=== PATIENT | male | born 1965 | race American Indian/Alaskan Native ===

== ENCOUNTER 2020-03-24 10:07 | Emergency (ER) | payer SELFPAY ==
--- NOTE | 2020-03-24 10:33 | Event Note ---
ED Screening Note Date of service: 03/24/20 Time: 10:33 ED Screening Note: 54-year-old -Serbian male presents to the emergency room complaining of intermittent chest pain to the left upper chest for a week. Patient denies any radiation to the jaw arm or back. Patient reports he had a physical couple months ago there is no concerns. Patient denies any shortness of breath or cough. Blood pressure was noted to be elevated in triage at 200/1 something. Repeated by this provider in triage and it was 177/98 with a pulse of 69. Patient denies any smoking of cigarettes or THC no alcohol use no illicit drug use. Currently takes no medications has no known drug allergies and no primary care provider at this time. This initial assessment/diagnostic orders/clinical plan/treatment(s) is/are subject to change based on patients health status, clinical progression and re-assessment by fellow clinical providers in the ED. Further treatment and workup at subsequent clinical providers discretion. Patient/guardian urged not to elope from the ED as their condition may be serious if not clinically assessed and managed. Initial orders include:
[2020-03-24 11:56] LABS: Basophils # (Auto) 0.1 K/mm3 (0.0-0.1); Basophils % (Auto) 0.9 % (0.0-1.8); Eosinophils # (Auto) 0.2 K/mm3 (0.0-0.4); Eosinophils % (Auto) 2.3 % (0.0-4.3); Hematocrit 42.1 % (35.5-45.6); Hemoglobin 14.2 gm/dl (11.8-15.2); Lymphocytes # (Auto) 2.5 K/mm3 (1.2-5.4); Mean Corpuscular HGB Conc 34 % (32-34); Mean Corpuscular Volume 81 fl (84-94); Monocytes # (Auto) 0.5 K/mm3 (0.0-0.8); Monocytes % (Auto) 7.6 % (0.0-7.3); Platelet Count 404 K/mm3 (140-440); Red Blood Count 5.23 M/mm3 (3.65-5.03); Red Cell Distribution Width 13.6 % (13.2-15.2)
[2020-03-24 12:19] LABS: Alanine Aminotransferase 33 units/L (7-56); Albumin 4.1 g/dL (3.9-5); BUN/Creatinine Ratio 15; Blood Urea Nitrogen 12 mg/dL (9-20); Calcium 9.2 mg/dL (8.4-10.2); Hemolysis Index 49
--- NOTE | 2020-03-24 12:26 | XRay Report ---
XR chest routine 2V INDICATION / CLINICAL INFORMATION: chest pain. COMPARISON: None available. FINDINGS: SUPPORT DEVICES: None. HEART /PULMONARY VASCULATURE: No significant abnormality. LUNGS / PLEURA: No significant pulmonary or pleural abnormality. No pneumothorax. ADDITIONAL FINDINGS: No significant additional findings. IMPRESSION: 1. No acute findings. Signer Name: Alex Doran MD Signed: 03/24/2020 12:22 PM Workstation Name: [id number]
--- NOTE | 2020-03-24 12:54 | Emergency Department Report ---
ED Chest Pain HPI - General Chief Complaint: Chest Pain Stated Complaint: CHEST PAIN Time Seen by Provider: 03/24/20 11:40 Source: patient Mode of arrival: Ambulatory Limitations: No Limitations - History of Present Illness Initial Comments: CC: chest pain HPI: This is a healthy 54-year-old male without significant past medical history who presents with chest pain. Patient has had 3 episodes of chest pain at night on the over the past week. Chest pain occurred at Friday and night. On Friday he remember 3 AM watching TV in bed. During that time he had a sharp chest pain which lasted about 2 minutes. He called EMS. Paramedics stated that he did not have a heart attack. He has been under a lot of stress. Several months ago he had a full physical. He was not told that he had high blood pressure at that time. He received regular primary care in [place]. He recently moved to [place] several months ago. He is retired fork truck driver. He does not smoke cigarettes. Denies drug use. He has he is a social drinker. MD Complaint: chest pain -: Gradual, days(s) (5 days ago on Friday) Onset: during rest Pain Location: left chest Pain Radiation: none Severity: mild Quality: sharp Consistency: now resolved Improves With: nothing Worsens With: exertion - Related Data Allergies Allergy/AdvReac Type Severity Reaction Status Date / Time No Known Allergies Allergy Unverified 03/24/20 10:09 Heart Score - HEART Score History: Slightly suspicious EKG: Normal Age: 45-65 Risk factors: 1-2 risk factors Troponin: < normal limit HEART Score: 2 ED Review of Systems ROS: Stated complaint: CHEST PAIN Other details as noted in HPI Comment: All other systems reviewed and negative Constitutional: denies: fever, malaise Respiratory: denies: cough, shortness of breath Cardiovascular: chest pain. denies: palpitations Gastrointestinal: denies: abdominal pain, nausea, vomiting ED Past Medical Hx - Past Medical History Previous Medical History?: No - Surgical History Past Surgical History?: No - Family History Family history: hypertension - Social History Smoking Status: Never Smoker Substance Use Type: Alcohol ED Physical Exam - General Limitations: No Limitations General appearance: alert, in no apparent distress, other (Appears pleasant, comfortable) - Head Head exam: Present: atraumatic, normocephalic - Eye Eye exam: Present: normal appearance - ENT ENT exam: Present: mucous membranes moist - Neck Neck exam: Present: normal inspection, full ROM - Respiratory Respiratory exam: Present: normal lung sounds bilaterally. Absent: respiratory distress, wheezes, rales, rhonchi - Cardiovascular Cardiovascular Exam: Present: regular rate, normal rhythm, normal heart sounds. Absent: systolic murmur, diastolic murmur, rubs, gallop - GI/Abdominal GI/Abdominal exam: Present: soft, normal bowel sounds. Absent: distended, tenderness, guarding, rebound - Rectal Rectal exam: Present: deferred - Extremities Exam Extremities exam: Present: normal inspection - Neurological Exam Neurological exam: Present: alert, oriented X3 - Psychiatric Psychiatric exam: Present: normal affect, normal mood - Skin Skin exam: Present: warm, dry, intact, normal color. Absent: rash ED Course Vital Signs 03/24/20 10:14 Temperature 98.2 F Pulse Rate 67 Respiratory 18 Rate Blood Pressure 200/102 O2 Sat by Pulse 97 Oximetry ED Medical Decision Making - Lab Data Result diagrams: 03/24/20 11:35 03/24/20 11:35 Laboratory Results - last 24 hr 03/24/20 03/24/20 03/24/20 11:35 11:35 11:35 WBC 6.9 RBC 5.23 H Hgb 14.2 Hct 42.1 MCV 81 L MCH 27 L MCHC 34 RDW 13.6 Plt Count 404 Lymph % (Auto) 37.0 H [place] % (Auto) 7.6 H Eos % (Auto) 2.3 Baso % (Auto) 0.9 Lymph # (Auto) 2.5 [place] # (Auto) 0.5 Eos # (Auto) 0.2 Baso # (Auto) 0.1 Seg Neutrophils % 52.2 Seg Neutrophils # 3.6 Sodium 134 L Potassium 4.1 Chloride 100.2 Carbon Dioxide 27 Anion Gap 11 BUN 12 Creatinine 0.8 Estimated GFR > 60 BUN/Creatinine Ratio 15 Glucose 101 H Calcium 9.2 Total Bilirubin 0.20 AST 27 ALT 33 Alkaline Phosphatase 63 Troponin T < 0.010 Total Protein 8.3 H Albumin 4.1 Albumin/Globulin Ratio 1.0 - EKG Data Interpretation: LVH 03/24/20 12:52 EKG obtained 1019 EKG interpreted by me Normal sinus rhythm rate 60 bpm normal axis normal intervals no ST-T signs of ischemia LVH criteria met aVL - Radiology Data Radiology results: report reviewed Chest radiograph: 2 views no significant findings no acute findings according to radiology impression - Medical Decision Making Ms. Manley is a healthy 54-year-old male without significant past medical history who presents with elevated blood pressure and atypical chest pain. Patient's had 3 episodes of nocturnal chest pain nonexertional without associated symptoms. Differential diagnosis includes PVCs, chest wall pain, GERD. I do not detect on physical exam today indication of emergent cause of chest pain such as pulmonary embolism, patient is PERC negative. I do not suspect dissection. Chest radiograph ruled out pneumonia ruled out pneumothorax. I have faxed cardiology referral request to [facility] for outpatient follow-up.. Hypertensive urgency: I strongly encourage patient to have repeat blood pressure within 2 weeks. I will withhold medication considering patient stated that he had normal blood pressure 7 months ago. No evidence of endorgan damage. EKG does reveal LVH. Critical care attestation.: If time is entered above; I have spent that time in minutes in the direct care of this critically ill patient, excluding procedure time. ED Disposition Clinical Impression: Chest pain, Hypertensive urgency Disposition: DC-01 TO HOME OR SELFCARE Is pt being admited?: No Does the pt Need Aspirin: No Condition: Stable Instructions: Chest Pain (ED), Nonspecific Chest Pain, Adult, [id number] Additional Instructions: Please have your blood pressure check within the next 2 weeks. Please see our physician for follow-up. Referrals: VIRGINIA RICHARDS MD [Staff Physician] - 3-5 Days PATY VARELA MD [Staff Physician] - 3-5 Days
[2020-03-24 13:12] VITALS: BP 165/102
== END 2020-03-24 13:12 | disposition home or self-care (01) ==
LOC: ED 10:07
DX: R07.89 Other chest pain (principal); I16.0 Hypertensive urgency
CPT/HCPCS: 36415; 71046; 80053; 84484; 85025; 93005